=== PATIENT | female | born 1995 | race Caucasian/White ===

== ENCOUNTER 2017-11-21 08:33 | Emergency (ER) | payer SELFPAY ==
[~2017-11-21] VITALS: Ht 177.8 cm; Wt 78.1 kg
[2017-11-21 08:41] VITALS: BP 152/108
[2017-11-21] MEDS ORDERED: ETHI1TAB26 PO (09:08)
== END 2017-11-21 11:15 | disposition home or self-care (01) ==
LOC: ED 11:08
DX: R53.1 Weakness (principal); G43.909 Migraine, unspecified, not intractable, without status migrainosus
CPT/HCPCS: 70450; 93005; 99284